=== PATIENT | male | born 1970 | race African-American/Black ===

== ENCOUNTER 2016-12-03 14:51 | Emergency (ER) | payer MEDICAID, OTHER ==
[~2016-12-03] VITALS: Ht 185.4 cm; Wt 79.4 kg
[2016-12-03 15:11] VITALS: BP_SYST 128
[2016-12-03 16:19] LABS: BASOPHILS % (AUTO) 0.6 % (0.0-2.0); EOSINOPHILS # (AUTO) 0.5 K/uL (0.0-0.4); EOSINOPHILS % (AUTO) 10.9 % (0.0-4.0); HEMATOCRIT 45.5 % (36-54); HEMOGLOBIN 15.3 g/dL (14.0-18.0); LYMPHOCYTES # (AUTO) 1.5 K/uL (1.0-5.5); LYMPHOCYTES % (AUTO) 30.4 % (20.5-51.5); MEAN CORPUSCULAR HEMOGLOBIN 31 pg (27-31); MEAN CORPUSCULAR HGB CONC 34 % (32-36); MEAN CORPUSCULAR VOLUME 92 fL (79.0-98.0); MONOCYTES # (AUTO) 0.4 K/uL (0.0-1.0); MONOCYTES % (AUTO) 7.8 % (1.7-9.3); NEUTROPHILS # (AUTO) 2.6 K/uL (1.8-7.7); NEUTROPHILS % (AUTO) 50.3 % (40.0-70.0); PLATELET COUNT (AUTO) 145 K/uL (130-430); RED BLOOD CELL COUNT(AUTO) 4.94 MIL/uL (4.2-6.2); RED CELL DISTRIBUTION WIDTH 12.8 % (9.0-15.0)
[2016-12-03 16:33] LABS: CALCIUM 9.7 mg/dL (8.4-11.0); CREATININE 0.99 mg/dL (0.55-1.30); POTASSIUM 3.8 mmol/L (3.5-5.1)
[2016-12-03 16:38] LABS: ALBUMIN 4.3 g/dL (3.4-4.8); TOTAL BILIRUBIN 0.7 mg/dL (0.0-1.0)
[2016-12-03 17:16] LABS: INR 1.1 (0.80-1.20); PROTHROMBIN TIME 11.6 SECS (9.5-12.5)
[2016-12-03 19:01] VITALS: BP_SYST 125
== END 2016-12-03 19:00 | disposition home or self-care (01) ==
LOC: SED 14:51
DX: R06.02 Shortness of breath (principal); M79.89 Other specified soft tissue disorders; R51 Headache; R11.0 Nausea
CPT/HCPCS: 36415; 36600; 71010; 73564; 80053; 82803-TC; 83930-TC; 85025; 85610-TC; 85730-TC; 99285

== ENCOUNTER 2017-11-02 10:44 | Emergency (ER) | payer SELFPAY ==
[~2017-11-02] VITALS: Ht 185.4 cm; Wt 81.6 kg
[2017-11-02 11:01] VITALS: BP_SYST 103
[2017-11-02] MEDS ORDERED: SULFAMETHOXAZOLE/TRIMETHOPR DS 1 TABLET PO ONE (11:45)
[2017-11-02] MEDS ORDERED: AMOXICILLIN/CLAVULANATE POTASSIUM 875 MG TABLET PO ONE (11:45)
[2017-11-02 11:53] VITALS: BP_SYST 106
== END 2017-11-02 11:53 | disposition home or self-care (01) ==
LOC: SED 10:44
DX: L03.114 Cellulitis of left upper limb (principal)
CPT/HCPCS: 99283

== ENCOUNTER 2017-11-09 09:12 | Emergency (ER) | payer SELFPAY ==
[~2017-11-09] VITALS: Ht 185.4 cm; Wt 81.6 kg
[2017-11-09 09:29] VITALS: BP_SYST 133
--- NOTE | 2017-11-09 09:30 | NUR ---
Patient to ER bed 8 to gown for evaluation. Side rails up.
--- NOTE | 2017-11-09 09:40 | NUR ---
Pt presents to Ed for wound care and check. Pt huynh s no acute distress noted. Wound dry and intact.
--- NOTE | 2017-11-09 09:50 | NUR ---
ER at bedside examining patient.
[2017-11-09] MEDS ORDERED: LIDOCAINE 4% TOPICAL 50 ML BOTTLE MM ONE (10:15)
--- NOTE | 2017-11-09 10:20 | NUR ---
Wound care done by Dr. Prater, pt tolerated well.
[2017-11-09 11:40] VITALS: BP_SYST 132
--- NOTE | 2017-11-09 11:40 | NUR ---
Patient given written and verbal discharge instructions and verbalizes understanding. ER MD discussed with patient the results and treatment provided. Patient in stable condition. ID arm band removed. No Rx given. Patient educated on pain management and to follow up with PMD. Pain Scale 0. Opportunity for questions provided and answered. Medication side effect fact sheet provided.
== END 2017-11-09 11:40 | disposition home or self-care (01) ==
LOC: SED 09:12
DX: Z48.00 Encounter for change or removal of nonsurgical wound dressing (principal); G47.30 Sleep apnea, unspecified
CPT/HCPCS: 99282

== ENCOUNTER 2017-11-11 10:17 | Emergency (ER) | payer MEDICAID ==
[~2017-11-11] VITALS: Ht 185.4 cm; Wt 81.6 kg
[2017-11-11 10:17] VITALS: BP_SYST 117
--- NOTE | 2017-11-11 10:17 | NUR ---
BROUGHT BACK TO BED #1 AND TRIAGED. WILL ASSUME CARE
--- NOTE | 2017-11-11 10:20 | NUR ---
DR VORA AT BEDSIDE FOR EVALUATION, REMOVED PACKING AND PLACED BANDAID. PT TOLERATED IT WELL. PT STATES HE IS TAKING TWO ANTIBIOTICS GIVEN TO HIM IN THE ER AND HAS PAIN MEDICATION AT HOME.
[2017-11-11 10:41] VITALS: BP_SYST 117
--- NOTE | 2017-11-11 10:41 | NUR ---
Patient given written and verbal discharge instructions and verbalizes understanding. ER MD discussed with patient the results and treatment provided. Patient in stable condition. ID arm band removed. Rx of NONE given. Patient educated on pain management and to follow up with PMD. Pain Scale 1/10. Opportunity for questions provided and answered. Medication side effect fact sheet provided.
== END 2017-11-11 10:41 | disposition home or self-care (01) ==
LOC: SED 10:17
DX: Z48.01 Encounter for change or removal of surgical wound dressing (principal)
CPT/HCPCS: 99281